=== PATIENT | female | born 1995 | race Caucasian/White ===

== ENCOUNTER → 2024-05-13 10:47 | Outpatient (REF) | payer OTHER, SELFPAY ==
[2024-05-15 07:52] LABS: Quantiferon NIL 0.03 IU/mL; Quantiferon Plus TB1 minus NIL 0.01 IU/mL (<=0.34); Quantiferon Plus TB2 minus NIL 0.01 IU/mL (<=0.34); Quantiferon TB Gold Plus Negative (Negative)
== END ==
LOC: REG 10:47
PROVIDERS: ATTENDING PHYSICIAN Nurse Practitioner Family; FAMILY PHYSICIAN Family Medicine
DX: Z23 Encounter for immunization (principal)
CPT/HCPCS: 36415; 86480

== ENCOUNTER → 2024-07-09 10:22 | Outpatient (REF) | payer BC, SELFPAY ==
[2024-07-09 12:04] LABS: % Basophils 0.4 % (0-2); % Eosinophils 1.2 % (0-6); % Immature Granulocytes 0.2 % (0-0.5); % Lymphocytes 17.5 % (20.5-51.1); % Monocytes 7.9 % (1.7-9.3); % Neutrophils 72.8 % (42.2-75.2); Absolute Eosinophils 0.1 10^3/uL (0-0.7); Absolute Lymphocytes 1.4 10^3/uL (1.2-3.4); Absolute Monocytes 0.6 10^3/uL (0.1-0.6); Absolute Neutrophils 5.9 10^3/uL (1.4-6.5); Hematocrit 42.3 % (37.0-47.0); Mean Corp Hgb Conc. 33.1 g/dL (33.0-37.0); Mean Corpuscular Hgb 29.1 pg (27.0-31.0); Mean Corpuscular Volume 87.9 fL (81.0-99.0); Mean Platelet Volume 10.3 fL (7.4-10.4); Nucleated Red Blood Cells % 0 %; Platelet Count 252 10^3/uL (130-400); Red Blood Cell Count 4.81 10^6/uL (4.20-5.40); Red Cell Dist. Width 13.2 % (11.5-14.5); White Blood Cell Count 8.1 10^3/uL (4.8-10.8)
[2024-07-09 12:57] LABS: ALT (SGPT) 12 U/L (0-35); AST (SGOT) 24 U/L (14-36); Albumin 4.6 g/dl (3.5-5.0); Alkaline Phosphatase 57 U/L (38-126); Blood Urea Nitrogen 16 mg/dl (7-17); Calcium 9.5 mg/dl (8.4-10.2); Carbon Dioxide 25 mmol/L (22-30); Chloride 102 mmol/L (98-107); Glucose 81 mg/dl (70-99); Potassium 4.5 mmol/L (3.5-5.1); Sodium 138 mmol/L (135-145); Total Bilirubin 0.6 mg/dl (0.2-1.3); Total Protein 7.8 g/dl (6.3-8.2); eGFR > 60.00
[2024-07-09 13:09] LABS: TSH Reflex To Free T4 2.66 uIU/ml (0.47-4.68)
== END ==
LOC: REG 10:22
PROVIDERS: ATTENDING PHYSICIAN Physician Assistant
DX: R00.2 Palpitations (principal)
CPT/HCPCS: 36415; 80053; 84443; 85025

== ENCOUNTER → 2024-07-27 09:34 | Outpatient (REF) | payer BC, SELFPAY | LOC: RCS 09:34 | PROVIDERS: ATTENDING PHYSICIAN Physician Assistant | DX: R00.2 Palpitations (principal) | CPT/HCPCS: 93225; 93226 ==

== ENCOUNTER 2024-10-20 23:17 | Emergency (ER) | payer BC, SELFPAY ==
[2024-10-20 23:28] VITALS: BP 112/72
[2024-10-20 23:42] VITALS: BP 103/72
[2024-10-20 23:43] VITALS: BMI 17.3
[2024-10-21] VITALS: BP 101/73
[2024-10-21 00:05] LABS: % Basophils 0.6 % (0-2); % Eosinophils 2.2 % (0-6); % Immature Granulocytes 0.3 % (0-0.5); % Monocytes 7.2 % (1.7-9.3); % Neutrophils 66.7 % (42.2-75.2); Absolute Basophils 0.1 10^3/uL (0-0.2); Absolute Eosinophils 0.3 10^3/uL (0-0.7); Absolute Lymphocytes 2.7 10^3/uL (1.2-3.4); Absolute Monocytes 0.9 10^3/uL (0.1-0.6); Absolute Neutrophils 7.9 10^3/uL (1.4-6.5); Hemoglobin 12.6 g/dL (12.0-16.0); Mean Corp Hgb Conc. 33.2 g/dL (33.0-37.0); Mean Corpuscular Hgb 29.6 pg (27.0-31.0); Mean Corpuscular Volume 89.2 fL (81.0-99.0); Mean Platelet Volume 9.9 fL (7.4-10.4); Nucleated Red Blood Cells % 0 %; Platelet Count 234 10^3/uL (130-400); Red Blood Cell Count 4.26 10^6/uL (4.20-5.40); Red Cell Dist. Width 13.5 % (11.5-14.5); White Blood Cell Count 11.9 10^3/uL (4.8-10.8)
[2024-10-21 00:17] LABS: Urine Albumin 1+ (Neg - Trace); Urine Bilirubin Negative (Negative); Urine Character Slightly Cloudy (Clear); Urine Color Yellow; Urine Glucose Negative (Negative); Urine Ketone Negative (Negative); Urine Leukocyte Negative (Negative); Urine Nitrite Negative (Negative); Urine Occult Blood 4+ (Negative); Urine Specific Gravity 1.025 (<1.030); Urine Urobilinogen Negative (Neg - 1+)
[2024-10-21 00:27] LABS: Blood Urea Nitrogen 15 mg/dl (7-17); Calcium 9.7 mg/dl (8.4-10.2); Carbon Dioxide 23 mmol/L (22-30); Chloride 106 mmol/L (98-107); Estimated Creatinine Clearance 80 ml/min; Glucose 100 mg/dl (70-99); Sodium 138 mmol/L (135-145); eGFR > 60.00
[2024-10-21 00:49] LABS: Urine Bacteria Moderate (Negative); Urine Calcium Oxalate Crystals Seen; Urine Red Blood Cell >100 /HPF (0-2); Urine Squamous Cell 21-25 /LPF (Few)
[2024-10-21 01:01] VITALS: BP 94/67
--- NOTE | 2024-10-21 01:30 | ED.GENMED ---
History of Present Illness
General
Chief Complaint: Urinary Symptoms
Source: patient
Exam Limitations: none
Time Seen by Provider: 10/21/24 00:43
Nursing documentation reviewed up to this point in time: agreed with
History of Present Illness
History of Present Illness:
29-year-old female past medical history of previous kidney stones presenting to the emergency department today with concerns of ongoing urinary symptoms as well as right-sided flank pain. Diagnosed with UTI 4 days ago started on Augmentin.
Cultures indicate that Augmentin does have susceptibility. Was positive for E. coli. Developed flank pain today. No fevers no chest pain or shortness of breath.
Past History
Past History
ED Past Medical History: None
ED Past Surgical History: None
Social History
Tobacco: Non-smoker
Review of Systems
Review of Systems
Allergies reviewed?: Yes
All Other Systems: ROS reviewed and negative except as documented in HPI and ROS
Phy Exam
Physical Exam
Physical Exam:
GENERAL: Alert , in no apparent distress
EYE: pupils equal and reactive
NECK: Supple, no significant adenopathy.
ENT: o/p clr, mmm.
CARDIAC: Regular rate and rhythm .
LUNGS: Clear breath sounds bilaterally, no acute respiratory distress, no wheezes/rales/rhonchi
ABDOMEN: Soft, without focal tenderness, no r/g, no cvat
NEUROLOGICAL: Alert and oriented, no focal neuro deficits
SKIN: Warm and dry, skin intact.
MUSCULOSKELETAL: No edema, well perfused.
PSYCH: Normal and appropriate interaction.
Sepsis
Sepsis Screening
Sepsis Assessment: Sepsis Ruled Out
Sepsis Screen
Sepsis Screen: Sepsis Ruled Out
Date: 10/21/24
Time: 04:41
Course
Orders/Labs/Results
Orders:
Orders
10/20/24 23:49
Basic Metabolic Panel Urgent
Complete Blood Count/With Diff Urgent
HCG, Serum Qualitative Screen Urgent
Comment: ADDED
Urinalysis Reflex To Culture Urgent
Date Specimen was Collected: 10/20/24
Time Specimen was Collected: 23:37
Urine Microscopic Reflex Cult Urgent
Urine Culture Urgent
HARRISON Source: U
Specimen Description:
Date Specimen was Collected: 10/20/24
Time Specimen was Collected: 23:37
10/21/24 01:00
CT Abd/Pel (IV only)-DH only Urgent
Comment:
Reason For Exam: R flank pain, recent UTI
10/21/24 01:01
0.9% Sodium Chloride 1000 ml [Nss] 1,000 ml IV BOLUS
10/21/24 01:02
Add On- LAB Urgent
Tests Added?: qual hcg
Abnormal Lab Results
10/20/24
23:49
WBC 11.9 H 10^3/uL
(4.8-10.8)
Absolute Neuts (auto) 7.9 H 10^3/uL
(1.4-6.5)
Absolute Monos (auto) 0.9 H 10^3/uL
(0.1-0.6)
Glucose 100 H mg/dl
(70-99)
Ur Occult Blood Reflex 4+ A
(Negative)
Urine RBC >100 A /HPF
(0-2)
Urine Bacteria (Reflex) Moderate A
(Negative)
Urine Albumin (Reflex) 1+ A
(Neg - Trace)
10/20/24 23:49
10/20/24 23:49
Vital Signs
Initial and Last Documented VS:
Initial Vital Signs
Temp Pulse Resp BP Pulse Ox
98.3 F 72 18 112/72 100
10/20/24 23:28 10/20/24 23:28 10/20/24 23:28 10/20/24 23:28 04/23/25 23:28
Last Documented Vital Signs
Temp Pulse Resp BP Pulse Ox
98.3 F 72 18 98/67 97
10/20/24 23:28 10/20/24 23:28 10/20/24 23:28 10/21/24 04:00 10/21/24 04:30
MDM/Problems Addressed
MDM/Problems Addressed:
29-year-old female presenting to the emergency department today with concerns of initial urinary symptoms now right-sided flank pain. Treated with Augmentin which was susceptible on cultures that were positive for E. coli. On urinalysis
significant red blood cells does not appear to be consistent with active infection at this point with only 3-5 white blood cells. Plan for CT scan for further assessment possible kidney stone. CT without emergent findings labs unremarkable no
evidence of any emergent process no signs of ongoing UTI. Patient did have hematuria. Advised for close outpatient follow-up for reassessment of this. Return precautions given.
*Critical Care Note
Total Time (30-74mins, 75-104mins- exclusive of procedures): Not Applicable
ED Attending Note
-
Portions of this chart may have been created with voice recognition software.� Occasional wrong word or��sound alike� substitutions may have occurred due to the inherent limitations of voice recognition software.
Discharge Plan
Departure
Patient Disposition: Home (Routine Discharge)
Date of Disposition: 10/21/24
Time of Disposition: 04:38
Patient with high blood pressure during this ER visit?: No
Condition: Good
Covid-19: Not Applicable
Discharge Problem:
Flank pain, Hematuria
Instructions: Blood in the Urine (Hematuria), Adult (DC)
Prescriptions:
No Action
No Current Medications
0
Referrals:
Kati Wilkes PA [Family Provider] -
Activity Restrictions/Additional Instructions:
You came to the emergency department today with concerns of flank pain. You had a normal CT scan and reassuring lab assessment. You did have blood in your urine it is unclear what the causes this could be secondary to your recent infection you
will need to follow-up in the next week or 2 for repeated urinalysis. Return for any worsening, new or concerning symptoms.
Interventions
Interventions:
*Risk Screen - Suicide Last Done: 10/20/24 23:28
*General Assessment Last Done: 10/20/24 23:43
*Neglect/Abuse Screening Last Done: 10/20/24 23:28
*ED- Fall Risk Assessment Last Done: 10/20/24 23:43
*ED COVID-19 Vaccine History Last Done: 10/20/24 23:43
ED-Female Genitourinary Assessment Last Done: 10/20/24 23:43
Discharge Date and Time
Print Language: UKRAINIAN
[2024-10-21] MEDS: NSS 1000 IV (01:33)
[2024-10-21 01:38] LABS: HCG, Serum Qualitative Screen Negative
[2024-10-21 02:00] VITALS: BP 97/69
[2024-10-21 03:00] VITALS: BP 95/67
--- NOTE | 2024-10-21 03:25 | DOWNTIME ---
There was a [employer] Downtime on 10/21/2024 from 0200 to 10/22/2023 at 0318 . Downtime documentation of patient's care, including medication administrations, has been reconciled in the electronic record per guidelines. Refer to the
patient's paper chart under the miscellaneous tab to see printed paper medication records and downtime forms.
[2024-10-21 04:00] VITALS: BP 98/67
== END 2024-10-21 04:49 | disposition home or self-care (01) ==
LOC: EMR 23:17
PROVIDERS: EMERGENCY PHYSICIAN Emergency Medicine; FAMILY PHYSICIAN Physician Assistant
DX: R10.9 Unspecified abdominal pain (principal); R31.9 Hematuria, unspecified; Z87.440 Personal history of urinary (tract) infections; Z87.442 Personal history of urinary calculi
CPT/HCPCS: 99283; 74177; 80048; 81003; 81015; 84703; 85025; 87086; Q9967

== ENCOUNTER → 2025-01-11 09:54 | Outpatient (REF) | payer BC, SELFPAY | LOC: REG 09:54 | PROVIDERS: ATTENDING PHYSICIAN Family Medicine; FAMILY PHYSICIAN Physician Assistant | DX: Z02.0 Encounter for examination for admission to educational institution (principal); Z01.84 Encounter for antibody response examination; Z12.4 Encounter for screening for malignant neoplasm of cervix | CPT/HCPCS: 36415; 86480; 86706 ==

== ENCOUNTER → 2025-02-02 14:24 | Outpatient (REF) | payer BC, SELFPAY ==
[2025-02-05 00:14] LABS: HBV Quant by NAAT IU/mL Not Detected; HBV Quant by NAAT Interp Not Detected (Not Detected); HBV Quant by NAAT Log IU/mL Not Detected log IU/mL
== END ==
LOC: REG 14:24
PROVIDERS: ATTENDING PHYSICIAN Family Medicine; FAMILY PHYSICIAN Physician Assistant
DX: Z11.59 Encounter for screening for other viral diseases (principal)
CPT/HCPCS: 36415; 87517

== ENCOUNTER → 2025-02-22 18:20 | Outpatient (REF) | payer BC, SELFPAY | LOC: CLAB 18:20 | PROVIDERS: ATTENDING PHYSICIAN Emergency Medicine | DX: R39.9 Unspecified symptoms and signs involving the genitourinary system (principal) | CPT/HCPCS: 87077; 87086 ==